=== PATIENT | female | born 1950 | race African-American/Black ===

== ENCOUNTER 2017-04-20 12:29 | Emergency (ER) | payer BC ==
[~2017-04-20] VITALS: Ht 167.6 cm; Wt 103.0 kg
[2017-04-20 12:38] VITALS: TEMP 36.4; Ht 167.6 cm; Wt 103.0 kg
[2017-04-20] MEDS ORDERED: BIMA0.01 OPB (13:29)
[2017-04-20] MEDS ORDERED: TRIA37.5 PO (13:29)
[2017-04-20] MEDS ORDERED: ASPI81TA28 PO (13:29)
[2017-04-20] MEDS ORDERED: ATOR-24 PO (13:29)
[2017-04-20] MEDS ORDERED: GLIP2.5T5 PO (13:29)
[2017-04-20] MEDS ORDERED: MECLIZINE HCL 25 MG TAB PO STA (13:35)
[2017-04-20] MEDS ORDERED: ONDANSETRON INJ 2 MG/ML 2 ML VIAL IV STA (13:35)
[2017-04-20] MEDS ORDERED: SODIUM CHLORIDE 0.9% 1000ML 1,000 ML IV STA (13:35)
[2017-04-20 13:58] LABS: BASO % 0.3 %; BASO ABS # 0.02 K/uL (0-0.2); COMPLETE YES; EOS % 2.3 %; HEMATOCRIT 39.1 % (37-47); IG% 0.3 %; LYMPH % 17.2 %; LYMPH ABS # 1.22 K/uL (1.2-3.4); MEAN CELL VOLUME 84.3 fL (80-100); MEAN CORPUSCULAR HEMOGLOBIN 29.1 pg (25-34); MEAN CORPUSCULAR HGB CONC 34.5 g/dl (32-36); MEAN PLATELET VOLUME 10.4 fL (7.4-10.4); MONO % 4.2 %; NEUT % 75.7 %; PLATELET COUNT 199 K/uL (130-400); RED BLOOD COUNT 4.64 M/uL (4.2-5.4); WHITE BLOOD COUNT 7.09 K/uL (4.8-10.8)
[2017-04-20 14:16] LABS: BUN/CREATININE RATIO 15.5 (10-20); CALCIUM 9.3 mg/dl (8.5-10.1); CREATININE 0.99 mg/dl (0.60-1.20); POTASSIUM 3.7 mmol/L (3.5-5.1)
[2017-04-20 14:17] LABS: URINE APPEARANCE CLEAR (CLEAR); URINE BILIRUBIN NEG (NEG); URINE COLOR YELLOW; URINE NITRITE NEG (NEG); UROBILINOGEN NEG (NEG); ZZUR CULT IF INDIC CLEAN CATCH YES
[2017-04-20 14:20] LABS: MANUAL MICROSCOPIC REQUIRED? NO; REVIEW REQ? NO
--- NOTE | 2017-04-20 14:44 | DIAGNOSTIC IMAGING REPORT ---
HEAD CT NONCONTRAST CT DOSE: 679.75 mGycm HISTORY: fell hit head TECHNIQUE: Multiaxial CT images of the head were performed without the use of intravenous contrast. Automated exposure control was utilized for this study. A dose lowering technique was utilized adhering to the principles of ALARA. Comparison: None. Findings: The paranasal sinuses and mastoid air cells are clear. The calvarium and skull base are intact. The ventricles and sulci are within normal limits. There is no mass, hematoma, midline shift, or acute infarct. Impression: No acute intracranial abnormality. Electronically signed by: Cricket Bob M.D. 04/20/2017 2:42 PM Dictated Date/Time: 04/20/2017 2:34 PM
[2017-04-20] MEDS ORDERED: CEPHALEXIN MONOHYDRATE 250 MG CAP PO ONE (16:15)
[2017-04-20] MEDS ORDERED: CEPH500C PO (16:17)
[2017-04-20 16:45] VITALS: BP 127/71; PULSE 49; O2SAT 97
--- NOTE | 2017-04-20 19:19 | EMERGENCY ROOM VISIT NOTE ---
History Report prepared by Vinod: Morgan Morfin Under the Supervision of: Dr. Mayank Pham D.O. First contact with patient: 13:18 Chief Complaint: NAUSEA Stated Complaint: LIGHT HEADED, NAUSEA, CONCUSSION Nursing Triage Summary: Pt arrived to triage ambulatory, states she hit the left front and side of her head about a week ago, (when she was bening over to do something) denies passing out stating "I didn't pass out, I saw stars and stripes." Threw up that night but thought it was due to the soy sauce she'd eaten. Nausea on and off. Saw Diann yesterday and he told her she had a concussion, but she did not have a CT. Pt c/o dizziness that began several days ago . History of Present Illness The patient is a 66 year old female who presents to the Emergency Room with complaints of a sudden head injury that occurred around a week ago. She says that she was sitting in the kitchen and dropped something on the floor. She reached down to get the object, but when she came back up she hit the front of her head on the countertop. The patient states that she "saw stars and stripes" , but did not pass out. She says that she vomited later that night, but was not too nauseous that evening. The patient says that she has also had an intermittent mild headache ever since the injury, but does not have one currently. She states that 3 nights ago, she vomited again due to nausea, and was dizzy all day and unsteady while walking. The patient's daughter says that the patient saw her [facility] primary care physician yesterday, and was diagnosed with a concussion. The patient notes that she has had an area around her left eye which has been painful and black and blue. She says that she has felt lightheaded intermittently since the injury, and had no prior issues with that before the injury. The patient states that 3 days ago, the room was spinning and she felt like passing out. She says that the episode resolved, but she had another episode of that this morning. The patient says that she vomited this morning, but that was just from the nausea. She adds that she has been unsteady as well today. She states that the dizziness that occurred earlier today was after getting up out of bed, and typically the dizziness worsens with getting up from laying down, and after standing for a while, the dizziness resolves. She says that she feels fine currently. She denies any abdominal pain or urinary symptoms. Her last bowel movement was this morning. She notes no previous abdominal surgeries. Source of History: patient, family Onset: A week ago Position: head Quality: other (injury - hit head on countertop) Timing: other (sudden) Associated Symptoms: + headache, + nausea, + vomiting, No LOC, No abdominal pain, No urinary symptoms Note: Associated symptoms: Dizziness, lightheadedness. Unsteady on feet. Painful area around left eye with bruising. Review of Systems See HPI for pertinent positives & negatives. A total of 10 systems reviewed and were otherwise negative. Past Medical & Surgical Medical Problems: (1) Diabetes (2) Heart disease (3) HTN (hypertension) Family History Diabetes mellitus Heart disease Hypertension Social History Smoking Status: Never Smoker Marital Status: Housing Status: lives with family Current/Historical Medications Scheduled Aspirin (Aspirin Ec), 81 MG PO DAILY Atorvastatin (Lipitor), 40 MG PO DAILY Bimatoprost (Lumigan), 1 DROPS OPB HS Cephalexin Monohydrate (Keflex), 500 MG PO TID Glipizide-Metformin Hcl (Glipizide/Metformin Hcl), 1 TAB PO BID Triamterene/Hctz (Dyazide 37.5MG/25MG), 1 TAB PO DAILY Allergies Coded Allergies: No Known Allergies (Unverified , 04/20/17) Physical Exam Vital Signs Date Time Temp Pulse Resp B/P (MAP) Pulse Ox O2 Delivery O2 Flow Rate FiO2 04/20/17 16:45 49 127/71 97 04/20/17 14:30 54 21 133/65 97 Room Air 04/20/17 14:09 45 04/20/17 12:38 36.4 60 16 147/78 98 Room Air Physical Exam GENERAL: sitting up in bed, alert, well appearing, well nourished, no distress, non-toxic EYE EXAM: normal conjunctiva, PERRL and EOM's grossly intact OROPHARYNX: no exudate, no erythema, lips, buccal mucosa, and tongue normal and mucous membranes are moist HEAD: Normocephalic, small contusion under left eyebrow. NECK: supple, no nuchal rigidity, no adenopathy, non-tender LUNGS: Clear to auscultation. Normal chest wall mechanics HEART: no murmurs, S1 normal and S2 normal ABDOMEN: abdomen soft, non-tender, normo-active bowel sounds, no masses, no rebound or guarding. BACK: Back is symmetrical on inspection and there is no deformity, no midline tenderness, no CVA tenderness. SKIN: no rashes and no bruising UPPER EXTREMITIES: upper extremities are grossly normal. LOWER EXTREMITIES: No pitting edema. NEURO EXAM: Normal sensorium, cranial nerves II-XII intact, normal speech, no weakness of arms, no weakness of legs. No drift. Finger to nose intact. Gross sensation intact. Rapid alternating movements of upper extremities intact. Medical Decision & Procedures ER Provider Diagnostic Interpretation: CT:Per my review, radiologist interpretation. HEAD CT NONCONTRAST CT DOSE: 679.75 mGycm HISTORY: fell hit head TECHNIQUE: Multiaxial CT images of the head were performed without the use of intravenous contrast. Automated exposure control was utilized for this study. A dose lowering technique was utilized adhering to the principles of ALARA. Comparison: None. Findings: The paranasal sinuses and mastoid air cells are clear. The calvarium and skull base are intact. The ventricles and sulci are within normal limits. There is no mass, hematoma, midline shift, or acute infarct. Impression: No acute intracranial abnormality. Electronically signed by: Cricket Bob M.D. 04/20/2017 2:42 PM Dictated Date/Time: 04/20/2017 2:34 PM Laboratory Results 04/20/17 13:40 Red Blood Count 4.64, Mean Corpuscular Volume 84.3, Mean Corpuscular Hemoglobin 29.1, Mean Corpuscular Hemoglobin Concent 34.5, Mean Platelet Volume 10.4, Neutrophils (%) (Auto) 75.7, Lymphocytes (%) (Auto) 17.2, Monocytes (%) (Auto) 4.2, Eosinophils (%) (Auto) 2.3, Basophils (%) (Auto) 0.3, Neutrophils # (Auto) 5.37, Lymphocytes # (Auto) 1.22, Monocytes # (Auto) 0.30, Eosinophils # (Auto) 0.16, Basophils # (Auto) 0.02 04/20/17 13:40 Test 04/20/17 13:40 White Blood Count 7.09 K/uL (4.8-10.8) Red Blood Count 4.64 M/uL (4.2-5.4) Hemoglobin 13.5 g/dL (12.0-16.0) Hematocrit 39.1 % (37-47) Mean Corpuscular Volume 84.3 fL (80-100) Mean Corpuscular Hemoglobin 29.1 pg (25-34) Mean Corpuscular Hemoglobin Concent 34.5 g/dl (32-36) Platelet Count 199 K/uL (130-400) Mean Platelet Volume 10.4 fL (7.4-10.4) Neutrophils (%) (Auto) 75.7 % Lymphocytes (%) (Auto) 17.2 % Monocytes (%) (Auto) 4.2 % Eosinophils (%) (Auto) 2.3 % Basophils (%) (Auto) 0.3 % Neutrophils # (Auto) 5.37 K/uL (1.4-6.5) Lymphocytes # (Auto) 1.22 K/uL (1.2-3.4) Monocytes # (Auto) 0.30 K/uL (0.11-0.59) Eosinophils # (Auto) 0.16 K/uL (0-0.5) Basophils # (Auto) 0.02 K/uL (0-0.2) RDW Standard Deviation 39.5 fL (36.4-46.3) RDW Coefficient of Variation 13.1 % (11.5-14.5) Immature Granulocyte % (Auto) 0.3 % Immature Granulocyte # (Auto) 0.02 K/uL (0.00-0.02) Urine Color YELLOW Urine Appearance CLEAR (CLEAR) Urine pH 6.0 (4.5-7.5) Urine Specific [place] 1.020 (1.000-1.030) Urine Protein TRACE (NEG) Urine Glucose (UA) NEG (NEG) Urine Ketones NEG (NEG) Urine Occult Blood TRACE (NEG) Urine Nitrite NEG (NEG) Urine Bilirubin NEG (NEG) Urine Urobilinogen NEG (NEG) Urine Leukocyte Esterase SMALL (NEG) Urine WBC (Auto) 10-30 /hpf (0-5) Urine RBC (Auto) 5-10 /hpf (0-4) Urine Hyaline Casts (Auto) 1-5 /lpf (0-5) Urine Epithelial Cells (Auto) 5-10 /lpf (0-5) Urine Bacteria (Auto) NEG (NEG) Anion Gap 7.0 mmol/L (3-11) Est Creatinine Clear Calc Drug Dose 66.8 ml/min Estimated GFR () 68.3 Estimated GFR (Non- 59.0 BUN/Creatinine Ratio 15.5 (10-20) Calcium Level 9.3 mg/dl (8.5-10.1) Total Bilirubin 0.6 mg/dl (0.2-1) Direct Bilirubin 0.2 mg/dl (0-0.2) Aspartate Amino Transf (AST/SGOT) 30 U/L (15-37) Alanine Aminotransferase (ALT/SGPT) 47 U/L (12-78) Alkaline Phosphatase 92 U/L (45-117) Total Protein 7.5 gm/dl (6.4-8.2) Albumin 3.9 gm/dl (3.4-5.0) Lipase 123 U/L (73-393) Laboratory results per my review. Medications Administered Medications (Trade) Dose Ordered Sig/Flor Route Start Time Stop Time Status Last Admin Dose Admin Sodium Chloride 1,000 ml @ 999 mls/hr Q1H1M STAT IV 04/20/17 13:35 04/20/17 14:35 DC 04/20/17 13:47 999 MLS/HR Ondansetron HCl (Zofran Inj) 4 mg NOW STAT IV 04/20/17 13:35 04/20/17 13:37 DC 04/20/17 13:44 4 MG Meclizine HCl (Antivert Tab) 25 mg NOW STAT PO 04/20/17 13:35 04/20/17 13:37 DC 04/20/17 13:44 25 MG ECG Indication: nausea Rate (beats per minute): 49 Rhythm: sinus bradycardia Findings: T-wave inversion (lead 3), left axis deviation, no ectopy Change: no significant change (from 09/07/2002) ED Course ED COURSE: Vital signs were reviewed and showed hypertensive vitals. The patients medical record was reviewed The above diagnostic studies were performed and reviewed. ED treatments and interventions as stated above. 1328: The patient was evaluated in room C1B. A complete history and physical examination was performed. 1335: Ordered Antivert Tab 25 mg PO, Zofran Inj 4 mg IV, NSS 1000 ml @ 999 mls/ hr IV. 1611: Upon reevaluation, the patient is resting comfortably.I discussed my findings with the patient and she understands and agrees with the treatment plan. Based on the patients age, coexisting illnesses, exam and lab findings the decision to treat as an outpatient was made. The patient remained stable while under my care. The patient appeared well at the time of discharge. 1615: Ordered Keflex Cap 500 mg PO. Medical Decision Differential diagnosis includes etiologies such as benign positional vertigo, dehydration, hypovolemia, anemia, tumor, infection, hypoglycemia, electrolyte abnormalities, cardiac sources, intracerebral event, toxicologic, neurologic, as well as others were entertained. Patient is a 66-year-old female who hit her head this past Tuesday when standing up. CBC all BMP, LFTs, bilirubin lipase is unremarkable. UA shows mild white cells of 30 and leukocytes. Epithelial cells were only 5. CT head was negative. Symptoms of lightheadedness or present when changing positions from lying to standing. She is completely neurologically intact with a negative CT head. All the symptoms started following hitting her head on Tuesday. I favor that she likely has a concussion and this is the cause of her symptoms versus her UTI which I favor is much less likely as she is completely asymptomatic. Patient and family were updated at bedside. She was completely a symptomatically on the ER. Patient was discharged to follow-up with PCP. Discussed with Pt concerning signs and symptoms to watch out for. Pt was instructed to follow up with their PCP and discussed with the patient their option to return to the ED at anytime for persistent or worsening symptoms. The appropriate anticipatory guidance and out-patient management, including indications for return to the emergency department, were explained at length to the patient and understood. Medication Reconcilliation Current Medication List: was personally reviewed by me Blood Pressure Screening Patient's blood pressure: Elevated blood pressure Blood pressure disposition: Elevated BP felt to be situational Impression Primary Impression: Concussion Additional Impression: UTI (urinary tract infection) Scribe Attestation The scribe's documentation has been prepared under my direction and personally reviewed by me in its entirety. I confirm that the note above accurately reflects all work, treatment, procedures, and medical decision making performed by me. Departure Information Dispostion Home / Self-Care Prescriptions Cephalexin Monohydrate (Keflex) 500 Mg Cap 500 MG PO TID for 7 Days, CAP Prov: Mayank Pham, DO 04/20/17 Referrals Delma Hodges D.O. (PCP) Patient Instructions ED Concussion, ED UTI Cystitis Female, My [facility] Additional Instructions Please follow up with your primary care doctor or if you are a student, [facility] with in the next 24 hours. Any worsening of your symptoms, please return to the ED immediately. This includes any fevers greater than 100.4, worsening pain, chest pain, shortness breath, persistent nausea, vomiting, unable to eat or drink, or any other concerning signs or symptoms from your standpoint. You were found to have a blood pressure greater than 120 systolic over 90 diastolic. Due to the new Medicare guidelines, we are now recommending that you follow up with your primary care doctor in regards to this elevated blood pressure. Problem Qualifiers Primary Impression: Concussion Encounter type: initial encounter Loss of consciousness presence/duration: without LOC Qualified Codes: S06.0X0A - Concussion without loss of consciousness, initial encounter Additional Impression: UTI (urinary tract infection) Urinary tract infection type: site unspecified Hematuria presence: with hematuria Qualified Codes: N39.0 - Urinary tract infection, site not specified ; R31.9 - Hematuria, unspecified
== END 2017-04-20 16:45 | disposition home or self-care (01) ==
LOC: C.EDB 12:30 → C.EDC 16:45
DX: S06.0X0A Concussion without loss of consciousness, initial encounter (principal); W22.8XXA Striking against or struck by other objects, initial encounter; Y92.010 Kitchen of single-family (private) house as the place of occurrence of the external cause; N39.0 Urinary tract infection, site not specified; R31.9 Hematuria, unspecified; E11.9 Type 2 diabetes mellitus without complications; I11.9 Hypertensive heart disease without heart failure; Z83.3 Family history of diabetes mellitus; Z82.49 Family history of ischemic heart disease and other diseases of the circulatory system; Z79.82 Long term (current) use of aspirin; Z79.899 Other long term (current) drug therapy

== ENCOUNTER → 2017-10-13 | Outpatient (CLI) | payer BC ==
[~2017-10-13] MED LIST: ASPI81TA28 PO; ATOR-24 PO; BIMA0.01 OPB; GLIP2.5T5 PO; TRIA37.5 PO
== END | disposition home or self-care (01) ==
LOC: C.PATHSPEC 13:12
PROVIDERS: ATTEND Obstetrics & Gynecology
DX: N89.8 Other specified noninflammatory disorders of vagina (principal); C52 Malignant neoplasm of vagina

== ENCOUNTER → 2017-10-13 | Outpatient (CLI) | payer BC | END | disposition home or self-care (01) | LOC: C.PAPS 13:23 | PROVIDERS: ATTEND Obstetrics & Gynecology | DX: Z12.4 Encounter for screening for malignant neoplasm of cervix (principal); N88.9 Noninflammatory disorder of cervix uteri, unspecified; N89.8 Other specified noninflammatory disorders of vagina; R87 Abnormal findings in specimens from female genital organs; R87.618 Other abnormal cytological findings on specimens from cervix uteri; R87.614 Cytologic evidence of malignancy on smear of cervix ==

== ENCOUNTER 2019-09-14 08:52 | Observation (INO) ==
--- NOTE | 2019-09-14 09:53 | XRay Report ---
XR humerus RT 2V CLINICAL HISTORY: Right upper arm pain status post trauma COMPARISON: None. DISCUSSION: There is acute fracture of the mid humeral shaft. There is 27 degrees of vertex medial an gulation. The distal fragment is laterally displaced x 9 mm. IMPRESSION: Acute transverse fracture the mid humeral shaft. ACT 112: Negative or not required by law. Electronically signed by: Kaushik Prince M.D. 09/14/2019 9:52 AM
--- NOTE | 2019-09-14 09:59 | XRay Report ---
XR shoulder RT min 2V routine CLINICAL HISTORY: Right shoulder pain COMPARISON: None. DISCUSSION: 2 views are provided for interpretation. No fractures or dislocations are visualized. IMPRESSION: No fractures or dislocations identified. ACT 112: Negative or not required by law. Electronically signed by: Kaushik Prince M.D. 09/14/2019 9:58 AM
[2019-09-14] MEDS ORDERED: GI COCKTAIL ED USE PO ONE (11:28)
[2019-09-14] MEDS ORDERED: FAMOTIDINE 40 MG TABLET PO ONE (11:28)
[2019-09-14] MEDS ORDERED: SUCRALFATE 1 GM TAB PO STA (11:28)
[2019-09-14] MEDS ORDERED: FAMOTIDINE 20 MG TAB ONE (11:39)
[2019-09-14] MEDS ORDERED: ONDANSETRON INJ 2 MG/ML 2 ML VIAL IV PRN (11:42)
[2019-09-14] MEDS ORDERED: OXYCODONE/ACETAMINOPHEN 5mg/325mg TAB PO PRN (11:42)
[2019-09-14] MEDS ORDERED: HYDROmorphone INJ 0.5 MG/0.5 ML SYR IV PRN (11:47)
--- NOTE | 2019-09-14 12:07 | History & Physical Report ---
Date of Service September 14, 2019 Assessment & Plan (1) Humerus shaft fracture: Discussed treatment options in detail at bedside. Her was available also. After consideration of her health, activity level, and pain we decided to proceed with an open reduction internal fixation of midshaft humerus fracture. We discussed the details in depth including the risks, benefits, recovering time, and hosptial stay. Decision for surgery was made today. Plan on surgery tomorrow morning. Anticipate discharge tomorrow afternoon. Present on Admission?: Yes History of Present Illness Debora is a pleasant 68 y/o female who fell earlier this morning. She slip on some water on the floor and landed hard on her right arm. She is left hand dominant. She states that she did not lose consciousness. 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 she denies any numbness and/or tingling in right upper extremity. Currently complains of minimal pain. She is diabetic and has a history of hypertension. Primary Care Provider: Delma Hodges DO Allergies Allergy/AdvReac Type Severity Reaction Status Date / Time No Known Allergies Allergy Verified 05/18/18 15:23 Home Medications Home Medications Medication Instructions Recorded Confirmed Type lisinopril 20 mg tablet 20 mg PO QAM 11/14/18 09/14/19 History aspirin 81 mg PO HS 09/14/19 09/14/19 History atorvastatin 40 mg PO HS 09/14/19 09/14/19 History bimatoprost [Lumigan] 1 drp OPB HS 09/14/19 09/14/19 History glipizide-metformin 1 tab PO BID 09/14/19 09/14/19 History Past Med/Surg History Medical History (Updated 09/15/19 @ 07:38 by Wilder García DO) Diabetes (Chronic) Endometrioid adenocarcinoma of uterus (Chronic) Family history of pseudocholinesterase deficiency Heart disease (Resolved) HTN (hypertension) (Chronic) Social History Preferred Language: Yakut Communication Ability: Effective [employer] Required: No Beliefs That Will Affect Care: None marital status: Current Living Situation: Spouse current occupational status: retired Other Information That Helps Us Care for You: No Feels Safe at Home: Yes Safety Concerns: Feels Safe At This Time Smoking Status: Never smoker Do You Dip or Chew Tobacco: No ; Second Hand Exposure: No ; Tobacco Cessation Education Requested by Patient: No Hx Alcohol Use: No Hx Substance Use: No Review of Systems Review of Systems: All systems reviewed & are unremarkable except as noted in HPI & below Physical Exam Constitutional: well developed, well nourished and healthy appearing Respiratory: normal respiratory effort Cardiovascular: RRR, no murmur, no edema Extremities: normal capillary refill Musculoskeletal: Extremities: + limited ROM of extremities, strength 5/5 throughout and + elbow/forearm abnormality Skin: no rashes, warm and dry Results & Data Vital Signs (Past 12 Hours) Vital Signs Temp Pulse Pulse Resp BP BP Pulse Ox 09/14/19 11:00 53 L 18 172/88 H 100 09/14/19 08:57 36.9 C 68 18 194/80 H 99 Code Status & VTE Plan VTE Prophylaxis Plan VTE Prophylaxis will be ordered: Yes Supervising Physician Co-Signing Physician Notes Dr. Jay Triplett
[2019-09-14 12:17] LABS: Basophils # (auto) 0.01 K/uL (0-0.2); Basophils % (auto) 0.1 %; Eosinophils # (auto) 0.03 K/uL (0-0.5); Eosinophils % (auto) 0.4 %; Hematocrit (blood only) 41.6 % (37-47); Hemoglobin 13.9 g/dL (12.0-16.0); Immature Granulocytes # (auto) 0.01 K/uL (0.00-0.02); Immature Granulocytes % (auto) 0.1 %; Mean Corpuscular Hgb Conc 33.4 g/dL (32-36); Mean Corpuscular Volume 86.8 fL (80-100); Mean Platelet Volume 10.4 fL (7.4-10.4); Monocytes % (auto) 2.8 %; Neutrophils # (auto) 6.37 K/uL (1.4-6.5); Neutrophils % (auto) 89.6 %; Platelet Count 190 K/uL (130-400); RDW Coefficient of Variation 13.5 % (11.5-14.5); RDW Standard Deviation 43.2 fL (36.4-46.3); Red Blood Count 4.79 M/uL (4.2-5.4); White Blood Count 7.12 K/uL (4.8-10.8)
[2019-09-14 12:30] LABS: Albumin Level 4.2 gm/dl (3.4-5.0); BUN Creatinine Ratio 13.3 (10-20); Calcium 9.8 mg/dl (8.5-10.1); Est GFR (African American) 71.7; Est GFR (Non-African American) 61.9; Potassium 3.8 mmol/L (3.5-5.1)
[2019-09-14 12:33] LABS: Bilirubin,Total 0.7 mg/dl (0.2-1); Globulin 4.2 gm/dl (2.5-4.0); Total Protein 8.4 gm/dl (6.4-8.2)
[2019-09-14] MEDS ORDERED: INFLUENZA ADMINISTRATION CHARGE ONE (14:11)
[2019-09-14] MEDS ORDERED: INFLUENZA VACCINE HIGH DOSE 65+ 0.5 ML SYR IM ONE (14:11)
[2019-09-14] MEDS: SODIUM CHLORIDE 0.9% 1000ML 1,000 ML IV SCH (14:25)
[2019-09-14] MEDS: METFORMIN HCL 500 MG TAB PO SCH (21:02)
[2019-09-14] MEDS: BIMATOPROST 0.01% OP SOLN 2.5 ML BTL OPB SCH (21:09)
[2019-09-14] MEDS: ASPIRIN 81 MG ECTAB PO SCH (21:10)
[2019-09-14] MEDS: glipiZIDE 5 MG TAB PO SCH (21:11)
[2019-09-14] MEDS: ATORVASTATIN 40 MG TAB PO SCH (21:11)
--- NOTE | 2019-09-14 22:11 | Electrocardiogram Report ---
Test Reason : Blood Pressure : / mmHG Vent. Rate : 054 BPM Atrial Rate : 054 BPM P-R Int : 164 ms QRS Dur : 080 ms QT Int : 422 ms P-R-T Axes : 012 -34 007 degrees QTc Int : 400 ms Sinus bradycardia with sinus arrhythmia Left axis deviation Abnormal ECG When compared with ECG of 20-APR-2017 14:00, No significant change was found Confirmed by Adam Ray ([id number]) on 09/14/2019 10:11:02 PM Referred By: REFERRED SELF Confirmed By:Adam Ray
[2019-09-15] MEDS: SODIUM CHLORIDE 0.9% 1000ML 1,000 ML IV SCH ×3 (03:18→21:19)
[2019-09-15] MEDS ORDERED: ePHEDrine sulfate 50 MG/ML AMP IV PRN (07:08)
[2019-09-15] MEDS ORDERED: fentaNYL citrate 100 MCG/2 ML VIAL IV PRN (07:08)
[2019-09-15] MEDS ORDERED: ATROPINE SULFATE 0.1 MG/ML 10ML SYR IV PRN (07:08)
[2019-09-15] MEDS ORDERED: ONDANSETRON INJ 2 MG/ML 2 ML VIAL IV PRN (07:08)
[2019-09-15] MEDS ORDERED: LIDOCAINE HCL 2% 2 ML VIAL/AMP(20MG/ML) INFIL ONE (07:13)
[2019-09-15] MEDS ORDERED: PROPOFOL IV EMULSION 10 MG/ML 20 ML VIAL IV ONE (07:13)
[2019-09-15] MEDS ORDERED: fentaNYL citrate 100 MCG/2 ML VIAL ONE (07:14)
[2019-09-15] MEDS ORDERED: MIDAZOLAM HCL 1 MG/ML 2ML VIAL ONE (07:15)
[2019-09-15] MEDS ORDERED: ROPIVACAINE 0.5% 5 MG/ML 30 ML VIAL ONE (07:15)
--- NOTE | 2019-09-15 07:22 | Anesthesiology Consultation ---
Date of Service September 15, 2019 Assessment & Plan (1) Encounter for pre-operative examination: Chart Review Chart Review: Acceptable Risk for Surgery Consults Requested none ASA ASA3 Proposed Anesthesia Anesthesia Type: General Regional Regional Laterality: Right Site: Interscalene Risk / Benefits Reviewed With: PT / POA / Parent / Guardian, Accepts Plan and Informed Consent Obtained History Surgery Operation Date: 09/15/19 07:30 Proposed Procedures p Right Humerus (Midshaft) Open Reduction Internal Fixation - Jay Triplett, Height/Weight Height: 5 ft 5 in Weight: 107.9 kg Allergies Allergy/AdvReac Type Severity Reaction Status Date / Time No Known Allergies Allergy Verified 05/18/18 15:23 Medications Home Medications Medication Instructions Recorded Confirmed Last Taken lisinopril 20 mg tablet 20 mg PO QAM 11/14/18 09/14/19 09/13/19 aspirin 81 mg PO HS 09/14/19 09/14/19 09/13/19 atorvastatin 40 mg PO HS 09/14/19 09/14/19 09/13/19 bimatoprost [Lumigan] 1 drp OPB HS 09/14/19 09/14/19 09/13/19 glipizide-metformin 1 tab PO BID 09/14/19 09/14/19 09/13/19 Active Medications Generic Name Dose Route Start Last Admin Trade Name Freq PRN Reason Stop Dose Admin Aspirin 81 mg 09/14/19 21:00 09/14/19 21:10 Ecotrin Ectab PO 10/14/19 20:59 81 mg HS KELLIE Administration Atorvastatin Calcium 40 mg 09/14/19 21:00 09/14/19 21:11 Lipitor PO 10/14/19 20:59 40 mg HS KELLIE Administration Bimatoprost 1 drops 09/14/19 21:00 09/14/19 21:09 Lumigan 0.01% OPB 10/14/19 20:59 1 drops HS KELLIE Administration Glipizide 5 mg 09/14/19 21:00 09/14/19 21:11 Glucotrol PO 10/14/19 20:59 5 mg BID KELLIE Administration Sodium Chloride 1,000 mls @ 75 mls/hr 09/14/19 12:45 09/15/19 03:18 Nss 1000ml IV 10/14/19 12:44 75 mls/hr .[id number] KELLIE Administration Metformin HCl 500 mg 09/14/19 21:00 09/14/19 21:02 Glucophage PO 10/14/19 20:59 500 mg BID KELLIE Administration Oxycodone/Acetaminophen 1 - 2 tab 09/14/19 11:42 09/14/19 14:28 Percocet 5mg/325mg PO 09/28/19 11:41 2 tab Q4H PRN Administration Pain NPO Date Last Intake of Fluids: 09/14/19 Time Last Intake of Fluids: 00:00 Date Last Intake of Solids: 09/14/19 Time Last Intake of Solids: 18:30 Past Medical History Medical History (Updated 09/15/19 @ 07:38 by Wilder García DO) Diabetes (Chronic) Endometrioid adenocarcinoma of uterus (Chronic) Family history of pseudocholinesterase deficiency Heart disease (Resolved) HTN (hypertension) (Chronic) Exercise / Class Metabolic Activity II 4-5 Yardwork/Stairs/Walk up hill Past Anesthesia History No Hx of Anesthesia Complications and No Family Hx of Anesthesia Complications History of PONV No Hx of PONV and No Hx of Motion Sickness Social History Smoking Status: Never smoker Do You Dip or Chew Tobacco: No Hx Alcohol Use: No Hx Substance Use: No substance use type: does not use Physical Exam Vital Signs Last Vital Signs Temp 98.1 F 09/14/19 23:46 Pulse 62 09/14/19 23:46 Resp 17 09/14/19 23:46 BP 164/82 H 09/14/19 23:46 Pulse Ox 98 09/14/19 23:46 ENMT Mouth: no dentition abnormality Thyromental Distance: > or= 3.5 Finger Breadths Mallampati Class: III Neck normal visual inspection Respiratory normal respiratory effort Auscultation: lungs clear to auscultation bilaterally Cardiovascular Rate/Rhythm: regular rate and regular rhythm Testing Laboratory Results 09/14/19 11:59 09/14/19 11:59 Blood Type A Positive 09/14/19 11:59 Antibody Screen NEGATIVE 09/14/19 11:59 09/15/19 09/14/19 06:05 20:56 POC Glucose 123 H 141 H Electrocardiogram Date: 09/14/19 Sinus bradycardia with sinus arrhythmia, rate 54 bpm Left axis deviation Abnormal ECG When compared with ECG of 20-APR-2017 14:00, No significant change was found Confirmed by Adam Ray ([id number]) on 09/14/2019 10:11:02 PM
[2019-09-15] MEDS ORDERED: BUPIVACAINE/EPINEPHRINE 0.5% MPF 1:200,000 10 ML VIAL ONE (07:24)
[2019-09-15] MEDS ORDERED: BACITRACIN INJ 50,000 UNIT VIAL ONE (07:24)
[2019-09-15] MEDS ORDERED: ONDANSETRON INJ 2 MG/ML 2 ML VIAL ONE (08:21)
[2019-09-15] MEDS ORDERED: CEFAZOLIN 250 MG/ML 1 GM VIAL ONE (08:27)
[2019-09-15] MEDS ORDERED: CEFAZOLIN 1000MG 1,000 MG/7.5 ML SYR IV ONE (08:32)
--- NOTE | 2019-09-15 09:13 | Orthopedic Progress Note ---
Date of Service September 15, 2019 Assessment & Plan (1) Humerus shaft fracture: We will proceed with an open reduction internal fixation of the right humeral shaft fracture. Her and her family understand the risks, benefits, and alternatives to the procedure and elected proceed. I talked about possible neurologic complications from the procedure. Postoperatively she will be kept overnight in the hospital for postoperative medical management. I plan to discharge her to home tomorrow on oral pain medications. Present on Admission?: Yes Subjective Debora was seen and examined in the preoperative holding area. She is fairly nervous for the surgery. Her family is with her at bedside. She is having a lot of pain in her arm. She is interested in proceeding with open reduction and internal fixation of the right humeral shaft fracture. Physical Exam Musculoskeletal: On physical exam emanation of the right arm, she is wearing her sling. She does have a deformity of her right arm. There are no abrasions lesions or lacerations of her skin. Results & Data ([facility]) Vital Signs (Past 12 Hours) Vital Signs Temp Pulse Resp BP Pulse Ox 09/14/19 23:46 36.7 C 62 17 164/82 H 98 PG Care Time/CCT Total # of Minutes Spent Total Time Spent with Patient: Total time spent is greater than 50% in coordination of care (as documented) at patient's floor/unit and/or counseling patient: Coding Level of Care Code None Diagnoses Humerus shaft fracture S42.309A
--- NOTE | 2019-09-15 09:18 | Operative Report ---
PG Post Operative Report Pre & Post Diagnosis Operation Date: 09/15/19 07:30 Pre-Op Diagnosis: ORIF Right Humerus Fracture Post-Op Diagnosis: ORIF Right Humerus Fracture I identified the patient and participated in the time-out.: Yes Procedure Operation Date: 09/15/19 07:30 Actual Procedures p Right Humerus (Midshaft) Open Reduction Internal Fixation(Right) - Jay Triplett DO Surgeon Jay Triplett DO Monotype Machinist Mushtaq Minor PAC Estimated Blood Loss 150 Findings Consistent with Post-Op Diagnosis Specimens None Complications none Disposition Disposition: Recovery Room Indications Debora is a pleasant 68-year-old female who slipped and fell yesterday sustaining a right transverse humeral shaft fracture. I saw her in the emergency room. After discussions with her and her family, she elected to be admitted to the hospital for open reduction and internal fixation of the right humeral shaft the following day. Description of Procedure On September 15, 2019 she was brought down from her hospital room to the preoperative holding area. The operative extremity was identified and signed. She was given a preoperative antibiotic and a right interscalene nerve block. She was taken back to the operating room and laid on the table in the supine position. She was put under general anesthesia. The right arm was prepped and draped in sterile fashion. A timeout was done. The patient and the operative extremity was properly identified. An anterior lateral approach was used. Dissection was taken down just lateral to the biceps muscle belly. The brachialis was split between the medial two thirds and the lateral third. The fracture was easily exposed. Care was taken not to disrupt the musculocutaneous or radial nerves. Once the fracture was exposed, clamps were placed and the fracture was reduced. Fluoroscopic images showed anatomic reduction. A Synthes 4.5 mm 7-hole narrow locking plate was placed. A compression screw was placed in a proximal hole and a second compression screw was placed in the distal hole. I was able to get some compression of the fracture. Fluoroscopic images showed near anatomic alignment of the fracture and appropriate positioning of the plate. 2 locking screws were then placed proximally and 2 locking screws were placed distally. The wound was then irrigated. Final fluoroscopic images showed near anatomic alignment and appropriate size of all the screws. The wound was once again irrigated. The deep fascia was closed with #0 Vicryl suture. The fat layer was closed with 2-0 Vicryl. Skin was closed with 2-0 Vicryl and tamica. She was then placed in a soft dressing. She was then placed in a right arm sling. She was then extubated and transferred to a hospital bed. She was taken to the postanesthesia care unit in stable condition. She tolerated the procedure well. Mushtaq Beltre PA-C, was present for the entire procedure. He was critical for patient positioning, prepping, draping, retraction exposure, wound closure and application of sterile dressing. I attest to the content of the Intraoperative Record and any orders documented therein. Any exceptions are noted below.
[2019-09-15] MEDS ORDERED: MAGNESIUM HYDROXIDE SUSP 30 ML UDC PO PRN (09:23)
[2019-09-15] MEDS ORDERED: bisacodyL 10 MG SUPP PR PRN (09:23)
[2019-09-15] MEDS ORDERED: NALOXONE HCL 0.4 MG/1 ML VIAL/CARP IV PRN (09:23)
[2019-09-15] MEDS ORDERED: OXYCODONE HCL IR 5 MG TAB (IMMEDIATE RELEASE) PO PRN (09:23)
[2019-09-15] MEDS ORDERED: METOCLOPRAMIDE HCL INJ 5 MG/ML 2 ML VIAL IV PRN (09:23)
--- NOTE | 2019-09-15 09:39 | Anesthesiology Progress Note ---
Date of Service September 15, 2019 Anesthesia Post Procedure Vital Signs Vital Signs: Temp Pulse Pulse Pulse Resp BP BP 09/15/19 09:30 69 15 152/79 H 09/15/19 09:22 96.8 F L 76 15 174/79 H 09/14/19 23:46 98.1 F 62 17 164/82 H 09/14/19 15:31 98.2 F 57 L 16 154/79 H 09/14/19 13:03 97.5 F L 81 18 179/79 H 09/14/19 12:31 57 L 25 H 165/91 H 09/14/19 12:12 59 L 18 171/81 H 09/14/19 12:00 09/14/19 11:00 53 L 18 172/88 H Pulse Ox 09/15/19 09:30 99 09/15/19 09:22 95 09/14/19 23:46 98 09/14/19 15:31 98 09/14/19 13:03 95 09/14/19 12:31 100 09/14/19 12:12 98 09/14/19 12:00 100 09/14/19 11:00 100 Pain Intensity Right Shoulder: Pain Intensity: 5 Transfer of Care Handoff Completed per policy Notes Mental Status: alert / awake / arousable and participated in evaluation Patient Amnestic to Procedure: Yes Nausea / Vomiting: adequately controlled Pain: adequately controlled Airway Patency, RR, SpO2: stable & adequate BP & HR: stable & adequate Hydration State: stable & adequate Anesthetic Complications: no major complications apparent and Pt Satisfied with anesthetic care
--- NOTE | 2019-09-15 09:57 | Fluoroscopy Report ---
FL humerus RT 2V CLINICAL HISTORY: ORIF RT HUMERUS COMPARISON STUDY: None. FLUOROSCOPY TIME: 9 seconds. FINDINGS: 2 fluoroscopic spot images of the right humerus demonstrate a cortical plate and screws tra nsfixing a midshaft fracture. Alignment is near-anatomic. The hardware is intact. IMPRESSION: Fluoroscopy provided for internal fixation of a right humeral fracture. ACT 112: Negative or not required by law. Electronically signed by: Cricket Bob M.D. 09/15/2019 9:55 AM
[2019-09-15] MEDS: KETOROLAC TROMETHAMINE 15 MG/ML VIAL IV SCH ×3 (11:12→22:18)
[2019-09-15] MEDS: glipiZIDE 5 MG TAB PO SCH ×2 (11:17→21:07)
[2019-09-15] MEDS: lisinopriL 20 MG TAB PO SCH (11:17)
[2019-09-15] MEDS: METFORMIN HCL 500 MG TAB PO SCH ×2 (11:17→21:08)
--- NOTE | 2019-09-15 12:24 | Emergency Department Note ---
Entered by Regi Ponce acting as a scribe for Jamar Newton MD History of Present Illness General Chief complaint: Fall Stated complaint: RIGHT SHOULDER PAIN Time Seen by Provider: 09/14/19 09:06 Source: patient Mode of arrival: ambulatory Limitations: no limitations History of Present Illness Provider complaint: Fall Onset (ago): hour(s) (this morning) Location: upper extremity (arm) and right Pain Consistency: + other (episode) Maximum Pain Intensity: 5 Quality: + other (fall) Associated symptoms: + other (Additional symptoms: right arm pain); no syncope Treatments prior to arrival: none The patient is a 68 year old female with a history of diabetes, endometrioid adenocarcinoma, heart disease, and hypertension who presents to the Emergency Room with complaints of an episode of a fall occurring this morning. The patient reports that she slipped on dog urine in her living room. She denies hitting her head, but she now complains of right arm pain. She claims that she cannot lift her right arm and notes that she feels like it is moving around. She states that she did not try icing the area prior to arrival. The patient indicates that she does not have an orthopedic surgeon. Home Medications Home Medications Medication Instructions Recorded Confirmed Type lisinopril 20 mg tablet 20 mg PO QAM 11/14/18 09/14/19 History aspirin 81 mg PO HS 09/14/19 09/14/19 History atorvastatin 40 mg PO HS 09/14/19 09/14/19 History bimatoprost [Lumigan] 1 drp OPB HS 09/14/19 09/14/19 History glipizide-metformin 1 tab PO BID 09/14/19 09/14/19 History Allergies Allergy/AdvReac Type Severity Reaction Status Date / Time No Known Allergies Allergy Verified 05/18/18 15:23 Past Med/Surg History Medical History (Updated 09/15/19 @ 12:24 by Jamar Newton MD) Diabetes (Chronic) Endometrioid adenocarcinoma of uterus (Chronic) Family history of pseudocholinesterase deficiency Heart disease (Resolved) HTN (hypertension) (Chronic) Social History Preferred Language: Icelandic Communication Ability: Effective [employer] Counselor Required: No Beliefs That Will Affect Care: None marital status: Current Living Situation: Spouse current occupational status: retired Other Information That Helps Us Care for You: No Feels Safe at Home: Yes Safety Concerns: Feels Safe At This Time Smoking Status: Never smoker Do You Dip or Chew Tobacco: No ; Second Hand Exposure: No ; Tobacco Cessation Education Requested by Patient: No Hx Alcohol Use: No Hx Substance Use: No Review of Systems See HPI for pertinent positives & negatives. and A total of 10 systems reviewed and were otherwise negative Physical Exam Vital Signs Vital Signs - 24 hr 09/14/19 08:57 09/14/19 11:00 Temperature 98.4 F Temperature Source Oral Pulse Rate 68 Pulse Rate [Finger] 53 L Respiratory Rate 18 18 Respiratory Effort / Characteristics Non-Labored Spontaneous Respiratory Depth Normal Normal Respiratory Pattern Regular Blood Pressure 194/80 H Blood Pressure [Left Arm] 172/88 H Blood Pressure Mean 118 Blood Pressure Mean [Left Arm] 116 Blood Pressure Position [Left Arm] Lying Pulse Oximetry 99 100 Oxygen Delivery Method Room Air Sepsis Recent Fever Within 48 Hours No Sepsis New/Unexplained Change in Mental Status No Sepsis Action Taken by Nursing No Action Required GENERAL: Awake, alert, well-appearing, in no acute distress HENT: Normocephalic, atraumatic. Oropharynx unremarkable. EYES: Normal conjunctiva. Sclera non-icteric. NECK: Supple. No nuchal rigidity. FROM. No JVD. RESPIRATORY: Clear to auscultation. CARDIAC: Regular rate, normal rhythm. Extremities warm and well perfused. Pulses equal. ABDOMEN: Soft, non-distended. No tenderness to palpation. No rebound or guarding. No masses. RECTAL: Deferred. MUSCULOSKELETAL: Chest examination reveals no tenderness. The back is sy mmetrical on inspection without obvious abnormality. There is no CVA tenderness to palpation. No joint edema. Poor range of the right shoulder. Neurovascularly intact at the right wrist. Good range of motion of the right elbow and right wrist. LOWER EXTREMITIES: Calves are equal size bilaterally and non-tender. No edema. No discoloration. NEURO: Normal sensorium. No sensory or motor deficits noted. SKIN: No rash or jaundice noted. Course Course 09: The patient was evaluated in room A11B, and a complete history and physical examination were performed. 1020: I discussed the patient's case with Jay Monique PA-C - Orthopedic Surgery, [facility]. Dr. Triplett - Orthopedic Surgery, [facility] will come to evaluate the patient. 1040: I spoke to Dr. Triplett about the patient's case. Dr. Triplett will evaluate the patient for further management. Consultations Consultation #1: I discussed the patient's case with Jay Monique PA-C - Orthopedic Surgery, [facility]. Dr. Triplett - Orthopedic Surgery, [facility] will come to evaluate the patient. Time: 10:20 Consultation #2: I spoke to Dr. Triplett about the patient's case. Dr. Triplett wi ll evaluate the patient for further management. Time: 10:40 Administered Medications Aspirin (Ecotrin Ectab) 81 mg PO HS KELLIE Stop: 10/14/19 20:59 Last Admin: 09/14/19 21:10 Dose: 81 mg Documented by: [id number] Atorvastatin Calcium (Lipitor) 40 mg PO HS KELLIE Stop: 10/14/19 20:59 Last Admin: 09/14/19 21:11 Dose: 40 mg Documented by: [id number] Bimatoprost (Lumigan 0.01%) 1 drops OPB HS [facility] Stop: 10/14/19 20:59 Last Admin: 09/14/19 21:09 Dose: 1 drops Documented by: [id number] Glipizide (Glucotrol) 5 mg PO BID KELLIE Stop: 10/14/19 20:59 Last Admin: 09/15/19 11:17 Dose: 5 mg Documented by: [id number] Admin: 09/14/19 21:11 Dose: 5 mg Documented by: [id number] Sodium Chloride (Nss 1000ml) 1,000 mls @ 100 mls/hr IV .Q10H KELLIE Stop: 09/16/19 06:00 Last Admin: 09/15/19 11:52 Dose: 100 mls/hr Documented by: [id number] Ketorolac Tromethamine (Toradol) 15 mg IV Q6H KELLIE Stop: 09/16/19 04:01 Last Admin: 09/15/19 11:12 Dose: 15 mg Documented by: [id number] Lisinopril (Zestril) 20 mg PO QAM KELLIE Stop: 10/15/19 08:59 Last Admin: 09/15/19 11:17 Dose: 20 mg Documented by: [id number] Metformin HCl (Glucophage) 500 mg PO BID KELLIE Stop: 10/14/19 20:59 Last Admin: 09/15/19 11:17 Dose: 500 mg Documented by: [id number] Admin: 09/14/19 21:02 Dose: 500 mg Documented by: [id number] Discontinued Medications Al Hydrox/Mg Hydrox/Simethicone () 1 dose PO ONE ONE Stop: 09/14/19 11:29 Last Admin: 09/14/19 11:52 Dose: 1 dose Documented by: [id number] Bacitracin (Bacitracin) Confirm Administered Dose 50,000 units .ROUTE .STK-MED ONE Stop: 09/15/19 07:25 Last Admin: 09/15/19 10:51 Dose: Not Given Documented by: [id number] Bupivacaine HCl/Epinephrine Bitart (Sensorcaine/Epinephrine 0.5% Mpf 1:200,000) Confirm Administered Dose 30 ml .ROUTE .STK-MED ONE Stop: 09/15/19 07:25 Last Admin: 09/15/19 10:51 Dose: Not Given Documented by: [id number] Famotidine (Pepcid) 40 mg PO NOW ONE Stop: 09/14/19 11:29 Last Admin: 09/14/19 11:53 Dose: 40 mg Documented by: [id number] Famotidine (Pepcid) Confirm Administered Dose 40 mg .ROUTE .STK-MED ONE Stop: 09/14/19 11:40 Last Admin: 09/14/19 11:53 Dose: Not Given Documented by: [id number] Sodium Chloride (Nss 1000ml) 1,000 mls @ 75 mls/hr IV .[id number] KELLIE Stop: 10/14/19 12:44 Last Infusion: 09/15/19 11:51 Dose: 0 mls/hr Documented by: [id number] Admin: 09/15/19 03:18 Dose: 75 mls/hr Documented by: [id number] Infusion: 09/15/19 03:18 Dose: 75 mls/hr Documented by: [id number] Admin: 09/14/19 14:25 Dose: 75 mls/hr Documented by: [id number] Cefazolin Sodium (Ancef 1000mg) 1,000 mg in 7.5 mls @ 2.5 mls/min IV ONCE ONE Stop: 09/15/19 08:34 Last Admin: 09/15/19 08:18 Dose: 2.5 mls/min Documented by: [id number] Influenza Virus Vaccine (Fluzone High-Dose Pf) 0.5 ml IM .ONCE ONE Stop: 09/14/19 14:12 Last Admin: 09/15/19 11:19 Dose: Not Given Documented by: [id number] Oxycodone/Acetaminophen (Percocet 5mg/325mg) 1 - 2 tab PO Q4H PRN PRN Reason: Pain Stop: 09/28/19 11:41 Last Admin: 09/14/19 14:28 Dose: 2 tab Documented by: [id number] Sucralfate (Carafate Tab) 1 gm PO NOW STA Stop: 09/14/19 11:29 Last Admin: 09/14/19 11:52 Dose: 1 gm Documented by: [id number] Medical Decision Making Differential Diagnosis Differential diagnosis includes: fracture, dislocation, neurovascular compromise, compartment syndrome, soft tissue injury, as well as others were entertained. Medical Records Attestation: I reviewed the patient's medical records. Home Medications Current Medication List: was personally reviewed by me Laboratory Data Attestation: I reviewed the patient's lab results. Result diagrams: 09/14/19 11:59 09/14/19 11:59 Imaging Data Radiologist's Impression: Radiology results as stated below per my review and the radiologist's interpretation: XR shoulder RT min 2V routine CLINICAL HISTORY: Right shoulder pain COMPARISON: None. DISCUSSION: 2 views are provided for interpretation. No fractures or dislocations are visualized. IMPRESSION: No fractures or dislocations identified. ACT 112: Negative or not required by law. Electronically signed by: Kaushik Prince M.D. 09/14/2019 9:58 AM XR humerus RT 2V CLINICAL HISTORY: Right upper arm pain status post trauma COMPARISON: None. DISCUSSION: There is acute fracture of the mid humeral shaft. There is 27 degrees of vertex medial angulation. The distal fragment is laterally displaced x 9 mm. IMPRESSION: Acute transverse fracture the mid humeral shaft. ACT 112: Negative or not required by law. Electronically signed by: Kaushik Prince M.D. 09/14/2019 9:52 AM ECG Data Attestation: I personally reviewed and interpreted this ECG as follows: Indication: + other (fall) Rate (beats per minute): 54 Rhythm: + sinus bradycardia ECG [place]: + Left axis deviation ECG ST segments: no ST depression and no ST elevation ECG Findings: + Other (QT-c is 400) Blood Pressure Blood Pressure Findings: Elevated blood pressure Blood Pressure Disposition: further management by hospitalist WILLIAM Aaron This is a 68-year-old female who presents emergency department with right arm pain. Patient's x-ray is concerning for humerus fracture. Due to the nature of the fracture as well as its location I did discuss the case with the orthopedic surgeon on-call who agreed to admit the patient. Patient's laboratory work is noncontributory. She denies any other injury including hitting her head. Pat ient and are in agreement with the treatment plan. Impression & Plan Fall, Humerus shaft fracture Discharge Plan Visit Data *Final* Discharge Date/Time: 09/14/19 12:59 Chief Complaint: Fall Stated Complaint: RIGHT SHOULDER PAIN ED Provider: Jamar Newton Discharge Problem: Fall, Humerus shaft fracture Patient Disposition: Admitted As Inpatient Discharge Instructions Interventions: ED Discharge Assessment Last Done: 09/14/19 12:59 Discharge Problem: Fall Qualifiers: Encounter type: initial encounter Qualified Code(s): W19.XXXA - Unspecified fall, initial encounter Humerus shaft fracture Qualifiers: Encounter type: initial encounter Fracture type: closed Fracture morphology: unspecified fracture morphology Laterality: right Qualified Code(s): S42.301A - Unspecified fracture of shaft of humerus, right arm, initial encounter for closed fracture The scribe's documentation has been prepared under my direction and personally reviewed by me in its entirety. I confirm that the note above accurately reflects all work, treatment, procedures, and medical decision making performed by me.
[2019-09-15] MEDS: CEFAZOLIN 2000MG 2,000 MG/15 ML SYR IV SCH ×2 (15:53→23:32)
[2019-09-15] MEDS ORDERED: SENNA 8.6 MG TAB PO SCH (21:00)
[2019-09-15] MEDS: ATORVASTATIN 40 MG TAB PO SCH (21:06)
[2019-09-15] MEDS: DOCUSATE SODIUM 100 MG CAP PO SCH (21:08)
[2019-09-15] MEDS: ASPIRIN 81 MG ECTAB PO SCH (21:08)
[2019-09-15] MEDS: BIMATOPROST 0.01% OP SOLN 2.5 ML BTL OPB SCH (21:09)
[2019-09-16] MEDS: KETOROLAC TROMETHAMINE 15 MG/ML VIAL IV SCH (03:50)
[2019-09-16 04:02] VITALS: TEMP 98.1
[2019-09-16 07:05] VITALS: BP 125/73; PULSE 64; O2SAT 95
--- NOTE | 2019-09-16 07:45 | Orthopedic Progress Note ---
Date of Service September 16, 2019 Assessment & Plan (1) Humerus fracture: Overall she is doing very well. She is not having much pain in the right arm. She will be seen by physical therapy today for ambulation and some gentle range of motion exercises. She can be discharged home later today. She will follow-up with orthopedics in 2 weeks. Present on Admission?: Yes Subjective Debora was seen and examined at bedside this morning. Overall she is doing much better. She is in good spirits this morning. She is not having much pain in her right arm. She has no complaints. Her daughter is with her at bedside. Physical Exam Musculoskeletal: On physical examination of the right shoulder, the dressing is clean and dry. She is wearing her sling as instructed. Her radial, median, and ulnar nerves are checked and intact at her wrist. Her musculocutaneous nerve was not definitively checked yet. Results & Data ([facility]) Vital Signs (Past 12 Hours) Vital Signs Temp Pulse Resp BP Pulse Ox 09/16/19 07:04 36.7 C 64 18 125/73 95 09/16/19 04:01 36.7 C 67 17 129/75 98 09/15/19 23:40 36.9 C 72 16 129/71 95 09/15/19 19:52 37.1 C 76 16 120/71 94 PG Care Time/CCT Total # of Minutes Spent Total Time Spent with Patient: Total time spent is greater than 50% in coordination of care (as documented) at patient's floor/unit and/or counseling patient: Coding Level of Care Code None Diagnoses Humerus fracture S42.309A
--- NOTE | 2019-09-16 07:47 | Discharge Summary ---
Date of Service September 16, 2019 Principal Diagnosis Right humerus fracture Discharge Data Allergies Allergy/AdvReac Type Severity Reaction Status Date / Time No Known Allergies Allergy Verified 05/18/18 15:23 Consultations 09/14/19 11:28 ED Decision to Admit Stat 09/15/19 09:23 Consult Case Management - Discharge Planning Routine Procedures Performed Operation Date: 09/15/19 07:30 Actual Procedures p Right Humerus (Midshaft) Open Reduction Internal Fixation(Right) - Jay Triplett DO Ordered Studies 09/15/19 07:08 US - OR guided needle placemen Routine 09/15/19 07:30 FL fluoroscopy <1hr Routine FL humerus RT 2V Routine Hospital Course (1) Humerus fracture: On September 14, 2019 Debora slipped and fell and sustained a right humeral shaft fracture. She came to [facility] emergency room and radiographs demonstrated a transverse fracture of the midshaft of the right humerus. After discussions in the emergency room, she elected to be admitted to the orthopedic service for definitive fixation of the fracture the following day. On September 15, 2019 she underwent an open reduction internal fixation of the right humeral shaft without complication. She had a general anesthetic and a right interscalene nerve block. Postoperatively she was placed in a sling and transferred back to the general orthopedic floors. Her hospital course was uneventful. On postop day #1 she was seen by physical therapy and able to do gentle range of motion exercises and ambulation. Her pain was well controlled. She was then discharged to home. She will follow-up with orthopedics in 2 weeks. Total Time Total Time Spent Total Time Spent (In Minutes): 20 Discharge Plan Discharge Items Patient Disposition: Home - Home Health Services Reason For Visit: ORIF HUMERUS FRACTURE Discharge Diagnosis: ORIF right humerus fracture Activity: As commented below Non-emergency contact: Surgeon Call non-emergency contact if: your wound has increased redness and your wound has increased drainage Follow-up/Referrals: Delma Hodges DO [Primary Care Provider] - Diet: Regular Addtl Attending Provider Instructions: Activity and Therapy Recommendations: * Wear your sling for 4-6 weeks, unless otherwise instructed. You may remove your sling to shower and to dress, but otherwise, you should be in your sling at all times, including while sleeping * You were shown a series of exercises in the hospital. Do these exercises daily including the exercises you were shown in physical therapy. Medications: * Narcotic You will likely be sent home from the hospital with a prescription for the narcotic pain medication that worked best throughout your stay. * Other medications may be prescribed for specific circumstances. If you have any questions, please call the office at . * Resume previous home medications unless otherwise instructed Dressing Care: Leave the plastic dressing in place for 5 days. After 5 days you may remove the plastic dressing. If the incision is not draining then you may leave the tamica open to air. If there is a little bit of drainage or if the tamica are getting stuck on your clothing then cover the incision with a dry dressing. The tamica will be removed at your 2 week follow-up appointment. Showering: You may shower with the plastic dressing in place. Let the shower spray hit the other shoulder. You can pat the plastic dry. If the dressing becomes wet underneath the plastic then simply remove the dressing. Keep the incision dry until you are 5 days out from the day of surgery. At that time you can shower with the tamica exposed. Let the soapy shower water run over the tamica and pat them dry. Do not scrub or soak the incision. Things To Watch For: * Drainage from the incision site that occurs more than one week after your surgery. * Increased redness at the incision site. * Fever above 102 degrees Fahrenheit. * Unusual chest pain or shortness of breath. * Call [facility] at with any of the above problems Follow-Up Visit: Follow-up with Dr. Triplett 2-3 weeks after your day of surgery. An appointment was probably scheduled when you signed-up for surgery in the office. If you have any questions call Office Instructions: More detailed instructions as well as Frequently Asked Questions were provided in a folder by our office when you signed-up for surgery. Please review these instructions when you get home. If you have any further questions or concerns, please feel free to call the office at [phone] Pending Studies at Discharge: No Stand-Alone Forms: [employer], Smoking Cessation Medications and DC Order Prescriptions: New oxycodone 5 mg Tablet 5 mg PO Q4H PRN (Reason: pain) Qty: 30 RF: 0 Continued lisinopril 20 mg tablet 20 mg PO QAM RF: 0 atorvastatin 40 mg tablet 40 mg PO HS RF: 0 aspirin 81 mg Tablet,Delayed Release (Dr/Ec) 81 mg PO HS RF: 0 glipizide-metformin 5-500 mg tablet 1 tab PO BID RF: 0 Lumigan 0.01 % drops 1 drp OPB HS RF: 0 Discharge Orders: Discharge Order (Routine); Ordered 09/16/19 Ordered By: Jay Triplett Admission Data Admit Date/Time: 09/14/19 11:44 Attending Provider: Jay Triplett Admit Provider: Jay Triplett Primary Care Provider: Delma Hodges Other Providers: Jay Triplett Coding Level of Care Code D/C Day Management <30 mins Diagnoses Humerus fracture S42.309A
[2019-09-16] MEDS ORDERED: MULTIVITAMIN TAB PO SCH (09:00)
[2019-09-16] MEDS: DOCUSATE SODIUM 100 MG CAP PO SCH (10:03)
[2019-09-16] MEDS: METFORMIN HCL 500 MG TAB PO SCH (10:03)
[2019-09-16] MEDS: glipiZIDE 5 MG TAB PO SCH (10:04)
[2019-09-16] MEDS: lisinopriL 20 MG TAB PO SCH (10:04)
== END 2019-09-16 11:18 | disposition home health service (06) | DRG 494 ==
LOC: ED 08:52 → 3N 11:44 → INTOOBSV 11:44 → 3N 12:59